=== PATIENT | male | born 2000 | race Two or more races ===

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

== ENCOUNTER → 2019-08-26 | Outpatient (CLI) | payer OTHER ==
--- NOTE | 2019-08-26 16:03 | US ---
EXAMINATION TYPE: US thyroid st tissue head/neck DATE OF EXAM: 08/26/2019 COMPARISON: NONE CLINICAL HISTORY: R22.1 swelling in neck. Left neck/shoulder painful and palpable lumps x couple week s Left neck inferior to ear: 1.6 x 1.1 x 1.1cm and 2.5 x 0.9 x 1.2cm vascular hypoechoic areas, probabl e lymph nodes Left neck/shoulder: multiple hypoechoic vascular areas with largest measuring 2.7 x 1.5 x 1.9cm, prob able lymph nodes Right neck for comparison: appears wnl IMPRESSION: 1. Large abnormal lymph nodes left neck. Recommend contrast soft tissue neck for additional evaluatio n. Consider potential lymphoma within the differential
== END | disposition home or self-care (01) ==
LOC: RADUSWWP 15:10
PROVIDERS: ATTEND Physician Assistant
DX: R59.9 Enlarged lymph nodes, unspecified (principal)
CPT/HCPCS: 76536

== ENCOUNTER → 2019-08-31 | Outpatient (CLI) | payer OTHER ==
--- NOTE | 2019-08-31 15:19 | XR ---
EXAMINATION TYPE: XR chest 2V DATE OF EXAM: 08/31/2019 COMPARISON: Prior chest x-ray 1998 HISTORY: Lumbar disc disease TECHNIQUE: Frontal and lateral views of the chest are obtained. FINDINGS: There is no focal air space opacity, pleural effusion, or pneumothorax seen. The cardiac silhouette size is within normal limits. The osseous structures are intact. IMPRESSION: No acute cardiopulmonary process.
[2019-09-01 06:42] LABS: EBV - VCA (IgG) >750.0 U/mL (<18.0); EBV - VCA IgM <10.0 U/mL (<36.0)
== END | disposition home or self-care (01) ==
LOC: RADXRMAIN 11:14
PROVIDERS: ATTEND Otolaryngology
DX: R22.1 Localized swelling, mass and lump, neck (principal); R05 Cough; R53.83 Other fatigue
CPT/HCPCS: 36415; 71046; 86611; 86665

== ENCOUNTER → 2019-09-07 | Outpatient (CLI) | payer OTHER ==
--- NOTE | 2019-09-07 16:11 | CT ---
EXAMINATION TYPE: CT soft tissue neck w con DATE OF EXAM: 09/07/2019 HISTORY: 2 Left sided neck masses marked by BBs. COMPARISON: CT cervical spine April 25, 2014 and neck ultrasound August 26, 2019 CT DLP: 546.9 mGycm. Automated Exposure Control for Dose Reduction was Utilized. TECHNIQUE: CT scan of the neck is performed with IV Contrast, patient injected with 100 mL of Isovue M300, axial images are obtained, coronal and sagittal reformatted images are reviewed. FINDINGS: Airway: Some prominence of the adenoid tonsils in the posterior nasopharynx and palatine tonsils on c urrent study, correlate clinically to exclude infection or tonsillitis remains airway patent. Visuali zed lungs are clear. Parotid/submandibular glands: Corresponding to palpable abnormalities there are 2 posterior inferior left parotid heterogeneous enhancing lesions, largest measures 1.8 x 1.6 cm axial image 76 and smalle r measures 1.0 cm axial image 72 just below and anterior to this. There is asymmetric enlargement wit h ill-defined fluid and fat stranding adjacent to the left parotid gland. Carotid/Vascular Structures: Codominant vertebrobasilar system. Osseous Structures: Some straightening of cervical spine. Other: There is asymmetric enlargement of the left thyroid mastoid versus opposite right side near in ferior parotid gland could reflect reactive inflammatory change. There is abnormal left lower cervica l heterogeneous hyperdense mass measuring 2.6 x 1.9 cm axial image 51 with ill-defined fluid and fat stranding and adjacent smaller suspicious masses inferior to this largest measuring 1.4 x 1.0 cm axia l image 45. Largest lesion axial image 51 is at level of vocal cord. More inferior lesion axial image 45 is at level of thyroid gland. Prominent but subcentimeter right supraclavicular lymph node axial image 43 noted. IMPRESSION: Several abnormal enhancing solid masses with suggestion of surrounding inflammation in th e left neck, some are at level of the inferior aspect of parotid glands, others extend along the left neck supraclavicular region. Differential includes infectious inflammatory and neoplastic processes. Not typical appearance of neoplasm such as lymphoma though metastatic disease would be in differenti al. Imaging guided FNA for further analysis can be performed if desired.
== END | disposition home or self-care (01) ==
LOC: RADCTMAIN 15:13
PROVIDERS: ATTEND Otolaryngology
DX: R22.1 Localized swelling, mass and lump, neck (principal); R05 Cough
CPT/HCPCS: 70491; Q9967

== ENCOUNTER 2022-04-05 18:44 | Emergency (ER) | payer OTHER ==
[2022-04-05 18:59] VITALS: RESP 16; TEMP 98.5
[2022-04-05] MEDS ORDERED: LIDOCAINE 1% INJ 10MG/ML (20 ML MDV) SQ ONE (19:12)
[2022-04-05] MEDS ORDERED: LIDOCAINE/EPINEPHR/TETRACAINE 5 ML BOTTLE TOPICAL ONE (19:12)
--- NOTE | 2022-04-05 20:36 | ED ---
Wound/Laceration HPI - General Chief Complaint: Wound/Laceration Stated Complaint: Facial injury Time Seen by Provider: 04/05/22 19:07 Source: patient Mode of arrival: ambulatory Limitations: no limitations - History of Present Illness Initial Comments: Patient is a 22-year-old male presenting with chief complaint of facial laceration. Patient tripped while walking up the stairs, causing him to hit his face and lacerated his upper lip. Patient denies any loss of consciousness, no nausea or vomiting, no neck pain, no vision or hearing changes, no headache. No blood thinners. Patient received a tetanus shot within the last 5 years. - Related Data Previous Rx's Medication Instructions Recorded traMADol HCL [Ultram] 50 mg PO Q4HR PRN #15 tab 06/21/17 Allergies Allergy/AdvReac Type Severity Reaction Status Date / Time metoclopramide [From Reglan] Allergy Rash/Hives Verified 04/05/22 18:57 Review of Systems ROS Statement: Those systems with pertinent positive or pertinent negative responses have been documented in the HPI. ROS Other: All systems not noted in ROS Statement are negative. Past Medical History Additional Past Medical History / Comment(s): migraines History of Any Multi-Drug Resistant Organisms: None Reported Past Surgical History: No Surgical Hx Reported Past Psychological History: No Psychological Hx Reported Smoking Status: Never smoker Past Alcohol Use History: None Reported, Occasional Past Drug Use History: None Reported - Past Family History Father Additional Family Medical History / Comment(s): Father had an appendectomy Mother Family Medical History: No Reported History General Exam Limitations: no limitations General appearance: alert, in no apparent distress Head exam: Present: atraumatic, normocephalic, normal inspection Eye exam: Present: normal appearance, EOMI. Absent: scleral icterus, periorbital swelling Expanded Mouth exam: Present: laceration. Absent: normal external inspection (2 cm laceration to the upper lip) Neurological exam: Present: alert, oriented X3, CN II-XII intact Psychiatric exam: Present: normal affect, normal mood Skin exam: Present: warm, dry, normal color. Absent: rash Course Vital Signs 04/05/22 04/05/22 18:57 20:45 Temperature 98.5 F Pulse Rate 99 72 Respiratory 16 16 Rate Blood Pressure 140/88 144/79 O2 Sat by Pulse 97 97 Oximetry Procedures - Laceration Laceration #1 Consent Obtained: verbal consent Indication: laceration Site: lip Size (cm): 2 Description: linear Depth: simple, single layer Anesthetic Used: lidocaine 1%, without epi Anesthesia Technique: local infiltration Amount (mls): 2 Pre-repair: wound explored, irrigated extensively Type of Sutures: nylon Size of Sutures: 6-0 Number of Sutures: 2 Technique: simple, interrupted Patient Tolerated Procedure: well Medical Decision Making - Medical Decision Making Patient is a 22-year-old male presenting for evaluation of lip laceration. Patient tripped while walking up stairs hitting his face. No loss of consciousness or blood thinners. On examination there are no focal neurological deficits. There is a 2 cm laceration to the upper lip. Wound was anesthetized, irrigated, repaired using 6-0 nylon, as this did not involve the oral mucosa, with 2 simple interrupted sutures. Educated on wound care. Sutures may be removed in 3-5 days. Follow-up with PCP. Report back to ER if any new or worsening symptoms. Discussed return parameters answered all questions. Patient conveyed verbal understanding and agreed to the plan. I discussed this case with my attending Dr. Guido. Disposition Clinical Impression: Lip laceration Disposition: HOME SELF-CARE Condition: Good Instructions (If sedation given, give patient instructions): Care For Your Stitches (ED), Facial Laceration (ED) Additional Instructions: Keep the wound clean and dry. Sutures may be removed in 3-5 days. Avoid touching the wound as this may cause infection. Monitor for signs infection, including but not limited to redness, swelling, tenderness, discharge, fever, c hills. Follow-up with PCP. Report back to ER if any new or worsening symptoms. Is patient prescribed a controlled substance at d/c from ED?: No Referrals: None,Stated [Primary Care Provider] - 1-2 days Time of Disposition: 20:36
[2022-04-05 20:45] VITALS: BP 144/79; PULSE 72
== END 2022-04-05 20:45 | disposition home or self-care (01) ==
LOC: EC 18:44
DX: S01.511A Laceration without foreign body of lip, initial encounter (principal); Z88.8 Allergy status to other drugs, medicaments and biological substances; W18.43XA Slipping, tripping and stumbling without falling due to stepping from one level to another, initial encounter
CPT/HCPCS: 99282; 12011; J2001